=== PATIENT | male | born 1965 | race African-American/Black ===

== ENCOUNTER 2022-01-31 23:32 | Emergency (ER) | payer OTHER ==
[2022-01-31 23:45] VITALS: PULSE 80; TEMP 98; BMI 30.2
[2022-02-01] MEDS ORDERED: ACETAMINOPHEN 500 MG TABLET (FP) PO ONE (01:41)
[2022-02-01] MEDS ORDERED: ACETAMINOPHEN 325 MG TABLET (FP) ONE (01:58)
[2022-02-01] MEDS ORDERED: ACETAMINOPHEN 500 MG TABLET (FP) ONE (02:02)
[2022-02-01 04:23] LABS: EOS % 4.3 % (0-4.5); HEMATOCRIT 36.1 % (35.4-49); MCH 27.9 pg (25.7-33.7); MCHC 33.2 g/dl (32.0-35.9); MEAN PLT VOLUME 8.4 fl (7.5-11.1); MONO % 10.4 % (3.8-10.2); NEUT % 55.3 % (42.8-82.8); PLATELET COUNT 276 10^3/uL (134-434); RDW 13.7 % (11.9-15.9); WHITE BLOOD COUNT 3.6 K/mm3 (4.0-10.0)
[2022-02-01 04:28] LABS: INR 1.12 (0.83-1.09); PROTHROMBIN TIME (PATIENT) 12.9 SEC (9.7-13.0)
[2022-02-01] MEDS ORDERED: APIXABAN 5 MG TABLET PO ONE (04:34)
[2022-02-01 04:35] LABS: ALBUMIN 3.8 g/dl (3.4-5.0); BLOOD UREA NITROGEN 16.7 mg/dL (7-18)
[2022-02-01 04:39] LABS: CREATININE 1.3 mg/dL (0.55-1.3)
[2022-02-01 04:40] LABS: BILIRUBIN,TOTAL 0.4 mg/dL (0.2-1); TOT PROT 8.1 g/dl (6.4-8.2)
[2022-02-01] MEDS ORDERED: APIXABAN 5 MG TABLET ONE (04:48)
[2022-02-01] MEDS ORDERED: KETOROLAC TROMETHAMINE 15 MG/ML VIAL IVPUSH ONE (08:21)
[2022-02-01] MEDS ORDERED: KETOROLAC TROMETHAMINE 15 MG/ML VIAL ONE (08:28)
[2022-02-01 09:13] VITALS: BP 140/78; RESP 18
== END 2022-02-01 09:30 | disposition home or self-care (01) ==
LOC: JER 23:32
DX: M25.562 Pain in left knee (principal); R22.42 Localized swelling, mass and lump, left lower limb
CPT/HCPCS: 36415; 73564-TC-LT-FY; 73564-TC-RT-FY; 80053; 85025; 85379; 85610; 93970-TC; 99281-25

== ENCOUNTER 2022-04-10 03:48 | Emergency (ER) | payer OTHER ==
[2022-04-10 03:57] VITALS: RESP 20; TEMP 98.1; BMI 31.6
[2022-04-10] MEDS ORDERED: CLINDAMYCIN 900 MG PREMIX IVPB 900 MG/50 ML BAG IVPB ONE ×2 (04:49→04:54)
[2022-04-10] MEDS ORDERED: KETOROLAC TROMETHAMINE 30 MG/1 ML VIAL IVPUSH ONE (04:51)
[2022-04-10] MEDS ORDERED: KETOROLAC TROMETHAMINE 30 MG/1 ML VIAL ONE (04:55)
[2022-04-10] MEDS ORDERED: DEXAMETHASONE SOD PHOSPHATE 10 MG/1 ML VIAL IVPUSH ONE (05:00)
[2022-04-10] MEDS ORDERED: SODIUM CHLORIDE 0.9% 500 ML INFUS.BAG IV ONE (05:00)
[2022-04-10] MEDS ORDERED: DEXAMETHASONE SOD PHOSPHATE 10 MG/1 ML VIAL ONE (05:10)
[2022-04-10 05:33] LABS: BASO % 1.3 % (0-2.0); HEMATOCRIT 36.6 % (35.4-49); HEMOGLOBIN 12.2 GM/dL (11.7-16.9); LYMPH % 28.4 % (8-40); MCH 27.9 pg (25.7-33.7); MCHC 33.3 g/dl (32.0-35.9); MEAN CELL VOLUME 83.9 fl (80-96); MEAN PLT VOLUME 8.5 fl (7.5-11.1); MONO % 10.7 % (3.8-10.2); NEUT % 55.6 % (42.8-82.8); PLATELET COUNT 225 10^3/uL (134-434); RBC 4.36 M/mm3 (4.00-5.60); RDW 13.8 % (11.9-15.9); WHITE BLOOD COUNT 3.1 K/mm3 (4.0-10.0)
[2022-04-10] MEDS ORDERED: morphine SULFATE 4 MG/ML VIAL IVPUSH ONE (05:35)
[2022-04-10] MEDS ORDERED: morphine SULFATE 4 MG/ML VIAL ONE (05:38)
[2022-04-10 05:43] LABS: INR 1.09 (0.83-1.09); PROTHROMBIN TIME (PATIENT) 12.6 SEC (9.7-13.0)
[2022-04-10 05:55] LABS: ALBUMIN 3.8 g/dl (3.4-5.0); BLOOD UREA NITROGEN 17.6 mg/dL (7-18); CALCIUM 8.6 mg/dL (8.5-10.1)
[2022-04-10 05:58] LABS: CREATININE 1.2 mg/dL (0.55-1.3)
[2022-04-10 06:00] LABS: BILIRUBIN,TOTAL 0.3 mg/dL (0.2-1); TOT PROT 7.8 g/dl (6.4-8.2)
[2022-04-10 08:17] VITALS: BP 122/79; PULSE 66
[2022-04-10] MEDS ORDERED: AMOX TR/POT CLAV 875MG/125MG TABLETS (FP) PO ONE (09:12)
[2022-04-10] MEDS ORDERED: AMOX TR/POT CLAV 875MG/125MG TABLETS (FP) ONE (09:31)
== END 2022-04-10 09:53 | disposition home or self-care (01) ==
LOC: JER 03:48
PROC: 3E033GC Introduction of Other Therapeutic Substance into Peripheral Vein, Percutaneous Approach (ICD-10-PCS; principal; 2022-04-10)
DX: R59.0 Localized enlarged lymph nodes (principal); J02.9 Acute pharyngitis, unspecified
CPT/HCPCS: 0241U-QW; 36415; 70491-TC; 80053; 83605; 85025; 85610; 85730; 87070; 87651; 99285-25; J1100; Q9967

== ENCOUNTER 2023-03-18 11:25 | Emergency (ER) | payer SELFPAY ==
[2023-03-18 11:48] VITALS: BMI 26.1
[2023-03-18] MEDS ORDERED: ACETAMINOPHEN 1000 MG/100 ML BAG IVPB ONE (14:14)
[2023-03-18] MEDS ORDERED: METOCLOPRAMIDE HCL INJECTION 10 MG/2 ML VIAL IVPB ONE (14:14)
[2023-03-18] MEDS ORDERED: ACETAMINOPHEN INJECTION 100 ML IVPB ONE (14:25)
[2023-03-18] MEDS ORDERED: METOCLOPRAMIDE HCL INJECTION 10 MG/2 ML VIAL ONE (14:25)
[2023-03-18 15:05] LABS: HEMATOCRIT 35.3 % (35.4-49); HEMOGLOBIN 11.8 GM/dL (11.7-16.9); MCH 27.8 pg (25.7-33.7); MCHC 33.3 g/dl (32.0-35.9); MEAN CELL VOLUME 83.6 fl (80-96); PLATELET COUNT 213 10^3/uL (134-434); RBC 4.23 M/mm3 (4.00-5.60); RDW 14.1 % (11.9-15.9)
[2023-03-18 15:11] LABS: INR 1.18 (0.83-1.09); PROTHROMBIN TIME (PATIENT) 13.7 SEC (9.7-13.0)
[2023-03-18 15:14] LABS: ACTIVATED PTT 31.9 SECONDS (25.2-36.5)
[2023-03-18 15:16] LABS: WHITE BLOOD COUNT 1.7 K/mm3 (4.0-10.0)
[2023-03-18 15:29] LABS: POTASSIUM 5.4 mmol/L (3.5-5.1)
[2023-03-18 15:31] LABS: ALBUMIN 4.2 g/dl (3.4-5.0); BLOOD UREA NITROGEN 10.3 mg/dL (7-18); CALCIUM 9.8 mg/dL (8.5-10.1)
[2023-03-18 15:34] LABS: CREATININE 1.1 mg/dL (0.55-1.3)
[2023-03-18 15:36] LABS: BILIRUBIN,TOTAL 0.7 mg/dL (0.2-1); TOT PROT 8.5 g/dl (6.4-8.2)
[2023-03-18 15:50] LABS: ANISOCYTOSIS 0; HELMET CELLS 0; HOWELL-JOLLY BODIES 0; MACROCYTOSIS 0; OVALOCYTE 0; ROULEAU 0; SICKELED CELLS 0; TARGET CELLS 0; TEAR DROP CELLS 0; TOXIC GRANULATION 0
[2023-03-18] MEDS ORDERED: PIPERACILLIN/TAZOB 4.5 GM 4.5 GM in DEXTROSE 5%-WATER 100 ML IVPB ONE (16:36)
[2023-03-18] MEDS ORDERED: PIPERACILLIN/TAZOB 4.5 GM 4.5 GM/100 ML BAG IVPB ONE (16:55)
[2023-03-18] MEDS ORDERED: FLUCONAZOLE 400 MG/NS 200 ML IVPB ONE (17:02)
[2023-03-18] MEDS ORDERED: SODIUM CHLORIDE 1,000 ML IV STA (17:05)
[2023-03-18] MEDS ORDERED: morphine CARPU-JECT 4 MG/1 ML DISP.SYRIN IVPUSH ONE ×2 (17:11→22:31)
[2023-03-18] MEDS ORDERED: morphine SULFATE 4 MG/ML VIAL ONE ×2 (17:34→22:33)
[2023-03-18 22:45] VITALS: BP 144/52; PULSE 57; RESP 16; TEMP 98.3
== END 2023-03-18 23:10 | disposition short-term general hospital (02) ==
LOC: JER 11:25
PROC: 3E03329 Introduction of Other Anti-infective into Peripheral Vein, Percutaneous Approach (ICD-10-PCS; principal; 2023-03-18)
PROC: 3E03329 Introduction of Other Anti-infective into Peripheral Vein, Percutaneous Approach (ICD-10-PCS; 2023-03-18)
PROC: 3E033NZ Introduction of Analgesics, Hypnotics, Sedatives into Peripheral Vein, Percutaneous Approach (ICD-10-PCS; 2023-03-18)
PROC: 3E033GC Introduction of Other Therapeutic Substance into Peripheral Vein, Percutaneous Approach (ICD-10-PCS; 2023-03-18)
PROC: 3E033GC Introduction of Other Therapeutic Substance into Peripheral Vein, Percutaneous Approach (ICD-10-PCS; 2023-03-18)
PROC: 3E033GC Introduction of Other Therapeutic Substance into Peripheral Vein, Percutaneous Approach (ICD-10-PCS; 2023-03-18)
DX: H60.22 Malignant otitis externa, left ear (principal); R51.9 Headache, unspecified; H92.02 Otalgia, left ear; Z20.822 Contact with and (suspected) exposure to COVID-19
CPT/HCPCS: 36415; 70450-TC; 70491-TC; 80053; 85025; 85610; 85651; 85730; 86140; 87040; 87070; 87186; 87205; 87635; 99285-25; J0131; Q9967